=== PATIENT | female | born 1980 ===

== ENCOUNTER 2018-12-23 17:54 | Emergency (ER) | payer MEDICAID ==
[~2018-12-23] VITALS: Ht 157.5 cm; Wt 53.0 kg
[~2018-12-23 17:54] MED LIST: FAMO-1 PO; GENOO EACHEYE; LORA0.5T PO; MAG-54 PO; NORCO10T PO; ONDA4TAB59 PO
[2018-12-23 18:05] VITALS: BP 123/88
--- NOTE | 2018-12-23 18:46 | NUR ---
pt not in room
== END 2018-12-23 19:19 | disposition left against medical advice (07) ==
LOC: ER 17:55
DX: K08.89 Other specified disorders of teeth and supporting structures (principal); E78.00 Pure hypercholesterolemia, unspecified; I10 Essential (primary) hypertension; J45.909 Unspecified asthma, uncomplicated; Z53.21 Procedure and treatment not carried out due to patient leaving prior to being seen by health care provider
CPT/HCPCS: 99281